=== PATIENT | female | born 1935 | race Caucasian/White ===

== ENCOUNTER 2017-02-01 20:48 | Emergency (ER) | payer OTHER ==
--- NOTE | ~2017-02-01 | CT71 ---
[facility] A Service of [facility] RADIOLOGY TEXT RESULTS PATIENT: MARGUERITE DE LOS SANTOS LOCATION: [place] : 39 UNIT #: [id number] AGE: [address]: Rl Wilburn MD SEX: F ORDER DR: [id number] [facility] [address] [place], [place] [address] [id number] MR#: [id number] Acc #: [id number] NAME: MARGUERITE DE LOS SANTOS : 1935 SEX: F STUDY DATE/TIME: 02/01/2017 21:22 UNIT: [place] ROOM: STUDY DESCRIPTION: CT Head Wo Contrast Attending Physician: Rl Wilburn M.D. Referring Physician: Ginger [place] M.D. Ordering Physician: Rl Wilburn M.D. Primary Care Physician: Ginger [place] M.D. MEDICAL IMAGING REPORT This report is preliminary unless electronic signature is present EXAM Noncontrast head CT HISTORY Headaches, nosebleed today, confusion. TECHNIQUE This CT exam was performed with one or more of the following radiation dose reduction techniques: automatic exposure control, adjustment of mA and/or kV according to patient size, and iterative reconstruction. COMPARISON STUDIES head CT 10/27/2006 FINDINGS Axial noncontrast imaging of the brain demonstrates bifrontal atrophy. No mass or hemorrhage or mass effect. Bony calvaria skull base mastoids and sinuses unremarkable. IMPRESSION Bifrontal atrophy. No acute findings. Dictated by... Daniella Roldan M.D. THIS IS AN ELECTRONICALLY VERIFIED REPORT Daniella Roldan M.D. at 02/02/2017 2:04 PM ARRON/yolanda TD: 02/01/2017 22:45 JOB #: [id number] [facility] A Service [facility] RADIOLOGY TEXT RESULTS PATIENT: MARGUERITE DE LOS SANTOS LOCATION: [place] : 37 UNIT #: [id number] AGE: [address]: Rl Wilburn MD SEX: F ORDER DR: MEDICAL IMAGING REPORT Page 1 of 1 COPY
--- NOTE | ~2017-02-01 | EKG ---
PATIENT: MARGUERITE DE LOS SANTOS UNIT #: [id number] Ventricular Rate: 90 BPM Atrial Rate: 90 BPM P-R Interval: 136 ms QRS Duration: 82 ms Q-T Interval: 368 ms QTC Calculation(Bezet): 450 ms P Hamler: 59 degrees Calculated R Hamler: 46 degrees Calculated T Hamler: 57 degrees Diagnosis Line: Normal sinus rhythm Diagnosis Line: Normal ECG Diagnosis Line: No previous ECGs available Diagnosis Line: Confirmed by KAMI PLUMMER MD ([id number]) on 02/02/2017 Diagnosis Line: 8:07:28 PM INTERPRETING MD: KAVITHA SAVAGE
[~2017-02-01 20:48] MED LIST: ASPIRIN81 MG PO; BACLOFEN20 M1 PO; FLEXERIL10 MG PO; IBUPROFEN800 MG PO; LORTAB 5/500 TA1 TA1 PO; NAPROSYN500 MG PO; PANTOPRAZOLE SO40 MG PO; ROBITUSSIN A-C-S1 ML PO; ZITHROMAX1 G/PKT PO
[2017-02-01 20:58] LABS: URINE SOURCE CLEAN CATCH
[2017-02-01 21:06] LABS: URINE APPEARANCE CLEAR; URINE BILIRUBIN NEG (NEG); URINE BLOOD NEG (NEG); URINE COLOR YELLOW; URINE GLUCOSE NEG (NEG); URINE KETONE NEG (NEG); URINE LEUKOCYTE ESTERASE NEG (NEG); URINE NITRATE NEG (NEG); URINE PH 5.5 (5-8); URINE PROTEIN NEG (NEG); URINE SPECIFIC GRAVITY 1.016 (1.003-1.035); URINE UROBILINOGEN 0.2 MG/DL (NEG)
[2017-02-01 21:11] LABS: CULTURE INDICATED? NO
[2017-02-01 21:15] LABS: BASOPHIL# 0.1 X10e3 (0-0.3); BASOPHIL% 0.4 % (0-2.5); EOSINOPHIL# 0.3 X10e3 (0-0.7); EOSINOPHIL% 2.1 % (0.0-7.0); HEMATOCRIT 35.7 % (35.0-45.0); HEMOGLOBIN 11.4 gm/dL (12.0-16.0); LYMPHOCYTE# 1.7 X10e3 (1.0-3.5); LYMPHOCYTE% 12.3 % (17.0-45.0); MEAN CELL VOLUME 89.2 FL (83-96); MEAN CORPUSCULAR HEMOGLOBIN 28.5 PG (28-34); MONOCYTE# 1.3 X10e3 (0-1.0); MONOCYTE% 9.7 % (3.0-12.0); NEUTROPHIL# 10.3 X10e3 (1.5-7.1); NEUTROPHIL% 75.5 % (40-75); PLATELET COUNT 240 X10e3 (140-420); RED CELL DISTRIBUTION WIDTH 13.9 % (11.0-15.5); WHITE BLOOD COUNT 13.7 X10e3 (4.0-10.5)
[2017-02-01 21:16] LABS: DIFF IND NO
[2017-02-01 21:34] LABS: CALCIUM SERUM 8.6 mg/dL (8.4-10.2); CREATININE SERUM 0.5 mg/dL (0.6-1.4); GLOM FILT RATE Estimated 92.1 mL/min (>60); POTASSIUM 3.6 mmol/L (3.5-5.1)
== END 2017-02-01 22:19 | disposition home or self-care (01) ==
LOC: CED 20:48
PROVIDERS: Emergency Medicine
DX: R51 Headache (principal); R25.1 Tremor, unspecified; I10 Essential (primary) hypertension; Z90.710 Acquired absence of both cervix and uterus
CPT/HCPCS: 36415; 70450; 80048; 81003; 85025; 93005; 99284; J2060